=== PATIENT | female | born 1990 | race Caucasian/White ===

== ENCOUNTER 2021-10-11 14:32 | Emergency (ER) | payer OTHER ==
[~2021-10-11] VITALS: Ht 157.5 cm; Wt 49.4 kg
[2021-10-11] MEDS ORDERED: FUSION PLUS CA1 EACH (14:54)
[2021-10-11] MEDS ORDERED: PRENA1 TRUE CO1 EACH (14:54)
== END 2021-10-11 18:14 | disposition home or self-care (01) ==
LOC: ER 14:32
DX: U07.1 COVID-19 (principal); Z3A.16 16 weeks gestation of pregnancy

== ENCOUNTER 2022-03-07 08:13 | Inpatient (IN) | payer OTHER ==
[~2022-03-07] VITALS: Ht 157.5 cm; Wt 63.5 kg
[~2022-03-07 08:13] MED LIST: FUSION PLUS CA1 EACH; PRENA1 TRUE CO1 EACH
[2022-03-09] MEDS ORDERED: FEOSOL325 MG PO ×2 (18:39→18:41)
[2022-03-09] MEDS ORDERED: VITAMIN C500 M6 PO ×2 (18:40→18:41)
== END 2022-03-09 18:48 | disposition home or self-care (01) | DRG 807 ==
LOC: OB/GYN 08:13 → LDR 08:13 → OB/GYN 14:28
PROVIDERS: ADMIT Specialist; ATTEND Specialist
PROC: 10E0XZZ Delivery of Products of Conception, External Approach (ICD-10-PCS; principal; 2022-03-07)
PROC: 4A1HXCZ Monitoring of Products of Conception, Cardiac Rate, External Approach (ICD-10-PCS; 2022-03-07)
DX: O80 Encounter for full-term uncomplicated delivery (principal); Z37.0 Single live birth; Z3A.38 38 weeks gestation of pregnancy; Z20.822 Contact with and (suspected) exposure to COVID-19